=== PATIENT | female | born 1945 | race Caucasian/White ===

== ENCOUNTER 2016-11-10 13:43 | Emergency (ER) | payer OTHER ==
--- NOTE | 2016-11-10 14:48 | RAD ---
HISTORY: Head injury COMPARISONS: None TECHNIQUE: Multiple contiguous axial CT scans were obtained of the head without intravenous contrast. FINDINGS: HEMORRHAGE/INFARCT: There is no hemorrhage or acute infarct. MASSES/SHIFT: There is no mass or shift. EXTRA-AXIAL SPACES: There are no extra-axial fluid collections. SULCI AND VENTRICLES: The sulci and ventricles are normal in size and position for the patient's stated age. CEREBRUM: There are no focal parenchymal abnormalities. BRAINSTEM: There are no focal parenchymal abnormalities. CEREBELLUM: There are no focal parenchymal abnormalities. VESSELS: There is calcification of the cavernous segments of the internal carotid arteries bilaterally and of the distal vertebral arteries bilaterally. PARANASAL SINUSES: The paranasal sinuses are clear. ORBITS: The orbits are unremarkable. BONES AND SOFT TISSUE: No bone or soft tissue abnormalities are noted. OTHER: None IMPRESSION: NO ACUTE INTRACRANIAL PATHOLOGY.
--- NOTE | 2016-11-10 16:13 | ED ---
Head Injury - HPI Summary HPI Summary: 71F presents with fall to right side of face. She states she tripped and landed on right side of face. no LOC. no nausea or vomiting. is not on blood thinners. denies any other pain. believes tetanus up to date. has small lac on right face. swelling to right side of face. fall was a mechanical fall. no chest pain or SOB. no other injury besides face. - History Of Current Complaint Chief Complaint: EDLacSutureRecheck Stated Complaint: FALL Time Seen by Provider: 11/10/16 14:15 Pain Intensity: 5 - Allergies/Home Medications Allergies/Adverse Reactions: Allergies Allergy/AdvReac Type Severity Reaction Status Date / Time Apple Allergy Unknown Verified 11/21/13 15:44 Reaction Details Cortisone Allergy Rash And Verified 11/25/13 09:04 Itching DIZZINESS PMH/Surg Hx/FS Hx/Imm Hx Endocrine/Hematology History: Denies: Hx Anticoagulant Therapy Cardiovascular History: Reports: Hx Hypertension Musculoskeletal History: Denies: Hx Osteoporosis Infectious Disease History: No Infectious Disease History: Denies: Traveled Outside the [place] in Last 30 Days - Family History Known Family History: Positive: Hypertension - Social History Alcohol Use: Rare Substance Use Type: Reports: None Smoking Status (MU): Never Smoked Tobacco Review of Systems Negative: Fever Negative: Chest Pain Negative: Shortness Of Breath Positive: Other - lac face and facial swelling Positive: Headache All Other Systems Reviewed And Are Negative: Yes Physical Exam Triage Information Reviewed: Yes Vital Signs On Initial Exam: Initial Vitals Temp Pulse Resp BP Pulse Ox 98 F 78 20 138/66 99 11/10/16 13:45 11/10/16 13:45 11/10/16 13:45 11/10/16 13:45 11/10/16 13:45 Vital Signs Reviewed: Yes Appearance: Positive: Well-Appearing Skin: Positive: Warm, Dry, Other - 1cm lac to right side of face Head/Face: Positive: Other - swelling around right eye, no step off, perez sign Eyes: Positive: Normal, EOMI, SELMA, Conjunctiva Clear ENT: Positive: Normal ENT inspection, Pharynx normal, TMs normal Respiratory/Lung Sounds: Positive: Clear to Auscultation, Breath Sounds Present Cardiovascular: Positive: Normal, RRR Musculoskeletal: Positive: Normal Neurological: Positive: Sensory/Motor Intact, Alert, Oriented to Person Place, Time, CN Intact II-III - [place] Coma Scale Best Eye Response: 4 - Spontaneous Best Motor Response: 6 - Obeys Commands Best Verbal Response: 5 - Oriented Coma Scale Total: 15 Procedures - Laceration/Wound Repair 1 Location: face Description: Irregular Length, Depth and Shape: 1cm superficial Irrigated w/ Saline (ccs): 100 Closure: Skin Adhesive, SteriStrips Diagnostics - Vital Signs Vital Signs Temp Pulse Resp BP Pulse Ox 11/10/16 13:45 98 F 78 20 138/66 99 - Laboratory Lab Statement: Any lab studies that have been ordered have been reviewed, and results considered in the medical decision making process. - CT brain, maxillaryfacial CT Interpretation: No Acute Changes CT Interpretation Completed By: Radiologist Head Injury Course/Dx Course Of Treatment: 71F presents with fall to right side of face. She states she tripped and landed on right side of face. no LOC. no nausea or vomiting. is not on blood thinners. denies any other pain. believes tetanus up to date. has small lac on right face. swelling to right side of face. on exam contusion to right side of face with 1cm superficial lac present that cleaned and glue. EOMI intact. normal neuro exam. - Diagnoses Differential Diagnosis/HQI/PQRI: Contusion, Intracranial Bleed, Laceration, Orbital Fracture Provider Diagnoses: Laceration, Head injury, Facial contusion Discharge - Discharge Plan Condition: Good Disposition: HOME Patient Education Materials: Skin Adhesive Care (ED), Facial Contusion (ED) Referrals: Kulwinder Mcneil MD [Primary Care Provider] - Additional Instructions: Place ice on area Take Tylenol for pain as needed every 6 hours Keep laceration dry for 24 hours Glue will fall off on own Avoid scrubbing area Follow up with primary within 5 days Return to ED if develop any signs of infection or any new or worsening symptoms
--- NOTE | 2016-11-10 16:13 | RAD ---
INDICATION: Right-sided facial injury. COMPARISON: There are no prior studies available for comparison. TECHNIQUE: Contiguous axial sections of the axial images of the facial bones were obtained and reconstructed in the coronal and sagittal planes. FINDINGS: The vasquez of the orbits and maxillary sinuses appear intact. The zygomatic arches appear intact. There is no evidence for a fracture of the mandible. The nasal bones appear intact. There is mild deviation of the nasal septum toward the right side. The pterygoid plates appear intact. The paranasal sinuses appear clear. IMPRESSION: NO EVIDENCE OF FRACTURE.
[2016-11-10 16:30] VITALS: BP 133/68
== END 2016-11-10 16:29 | disposition home or self-care (01) ==
LOC: ED 13:43
DX: S01.81XA Laceration without foreign body of other part of head, initial encounter (principal); S09.90XA Unspecified injury of head, initial encounter; S00.83XA Contusion of other part of head, initial encounter; W18.09XA Striking against other object with subsequent fall, initial encounter; Y92.9 Unspecified place or not applicable; I10 Essential (primary) hypertension
CPT/HCPCS: 12001; 70450; 70486; 99282

== ENCOUNTER 2017-09-14 13:58 | Emergency (ER) | payer OTHER ==
[2017-09-14 14:36] VITALS: BP 156/76
--- NOTE | 2017-09-14 15:41 | UC ---
Lower Extremity/Ankle HPI - HPI Summary HPI Summary: The pt is a 72 y/o female presenting to c/o bilateral LE pain worse in the RLE. The pain started 3 weeks ago worsened 2 days ago. The pain is rated 4/ 10 in severity. She has been travelling by air over the last few days and has also been taking a class that involves plenty of sitting. She denies SOB and CP. This is scribe Erna Duncan documenting for attending Dr. Aubrey Keita, Dr. Burgos , personally performed the services described in this documentation as scribed in my presence and it is both accurate and complete. - History of Current Complaint Chief Complaint: UCLowerExtremity Stated Complaint: LEG PAIN Time Seen by Provider: 09/14/17 15:14 Hx Obtained From: Patient Onset/Duration: Sudden Onset, Lasting Weeks - 3 weeks, Still Present, Worse Since - 2 days ago Severity Initially: Mild Severity Currently: Mild Pain Intensity: 4 Pain Scale Used: 0-10 Numeric - Allergies/Home Medications Allergies/Adverse Reactions: Allergies Allergy/AdvReac Type Severity Reaction Status Date / Time apple Allergy Unknown Verified 09/14/17 14:37 Reaction Details Home Medications: Home Medications Nortriptyline CAP* [Pamelor CAP*] 50 mg PO BEDTIME 09/14/17 [History Confirmed 09/14/17] PMH/Surg Hx/FS Hx/Imm Hx Previously Healthy: Yes - No known hx ofosteopororsis, HTN or cardiac disease Other History Of: Negative For: Anticoagulant Therapy - Surgical History Surgical History: Yes Surgery Procedure, Year, and Place: hysterectomy, cholecystectomy, - Family History Known Family History: Positive: Hypertension - Social History Occupation: Employed Full-time Lives: With Family Alcohol Use: Rare Substance Use Type: None Smoking Status (MU): Never Smoked Tobacco Review of Systems Constitutional: Negative - Fever Respiratory: Negative - SOB, CP Musculoskeletal: Other: - Positive: bilateral LE pain worse in the RLE All Other Systems Reviewed And Are Negative: Yes Physical Exam - Summary Physical Exam Summary: General: well-appearing, no pain distress Skin: warm, color reflects adequate perfusion, dry Head: normal Eyes: EOMI, SELMA ENT: normal Neck: supple, nontender Respiratory: CTA, breath sounds present Cardiovascular: RRR Abdomen: soft, nontender Bowel: present Musculoskeletal: Bilateral edema , R calf is tender to palpation, strength/ROM intact Neurological: sensory/motor intact, A&O x3 Psychological: affect/mood appropriate Triage Information Reviewed: Yes Vital Signs: Initial Vital Signs Temp 97.2 F 09/14/17 14:28 Pulse 49 09/14/17 14:28 Resp 16 09/14/17 14:28 BP 156/76 09/14/17 14:28 Pulse Ox 99 09/14/17 14:28 Vital Signs Reviewed: Yes Lower Extremity Course/Dx - Course Course Of Treatment: NO US AVAILABLE HER IN CLINIC. I RECOMMENDED GOING TO THE EMERGENCY DEPARTMENT FOR A VENOUS DOPPLER TO EVAL FOR DVT. I RECOMMENDED LAB WORK TO CHECK KIDNEY FUNCTION. THE PATIENT PREFERED TO HAVE LAB WORK DONE IN THE ED. - Differential Dx/Diagnosis Provider Diagnoses: B/L PEDAL EDEMA. RIGHT CALF PAIN Discharge - Sign-Out/Discharge Documenting (check all that apply): Patient Departure - Discharge Plan Condition: Stable Disposition: HOME-RECOMMEND TO ED Patient Education Materials: Leg Edema (ED), Leg Pain (ED) Referrals: Kulwinder Mcneil MD [Primary Care Provider] - Additional Instructions: GO DIRECTLY TO THE EMERGENCY DEPARTMENT FOR ULTRASOUND OF YOUR LEG TO DETERMINE IF YOU HAVE A DEEP VENOUS THROMBOSIS. - Billing Disposition and Condition Condition: STABLE Disposition: Home-Recommend to ED
== END 2017-09-14 15:42 | disposition home health service (06) ==
LOC: UCEAST 13:58
DX: R60.9 Edema, unspecified (principal); M79.661 Pain in right lower leg
CPT/HCPCS: 99212; G0463

== ENCOUNTER 2017-09-14 17:59 | Emergency (ER) | payer OTHER ==
--- NOTE | 2017-09-14 19:06 | ED ---
Lower Extremity - HPI Summary HPI Summary: 72 y/o female presenting to ER with complaints of bilateral LE pain worse in the RLE which began 3 days ago. The edema started 3 weeks ago worsened 2 days ago due to the new onset of pain in right calf. The pain is rated 4/10 in severity. She has been traveling by air over the last few days and has also been taking a class that involves plenty of sitting. She denies SOB and CP. No known cardiac history. No hx of blood clots. Sent by to rule out DVT and labs. No recent trauma or injury. Denies erythema, or warmth. Denies cigarette and hormone use - History of Current Complaint Chief Complaint: EDExtremityLower Stated Complaint: RT LEG PAIN Time Seen by Provider: 09/14/17 18:28 Hx Obtained From: Patient Onset of Pain: Days Onset/Duration: Weeks Severity Initially: Mild Severity Currently: Mild Pain Intensity: 3 Pain Scale Used: 0-10 Numeric Timing: Constant Location: Is Discrete @ - right posterior lower leg/calf Character Of Pain: Aching Associated Signs And Symptoms: Positive: Swelling Aggravating Factor(s): Standing, Ambulation Alleviating Factor(s): Rest Able to Bear Weight: Yes - Allergies/Home Medications Allergies/Adverse Reactions: Allergies Allergy/AdvReac Type Severity Reaction Status Date / Time apple Allergy Unknown Verified 09/14/17 14:37 Reaction Details PMH/Surg Hx/FS Hx/Imm Hx Endocrine/Hematology History: Denies: Hx Anticoagulant Therapy Cardiovascular History: Denies: Hx Deep Vein Thrombosis, Hx Hypertension Musculoskeletal History: Denies: Hx Osteoporosis - Surgical History Surgery Procedure, Year, and Place: hysterectomy, cholecystectomy, - Immunization History Immunizations Up to Date: Yes Infectious Disease History: No Infectious Disease History: Denies: Traveled Outside the [place] in Last 30 Days - Family History Known Family History: Positive: Hypertension - Social History Alcohol Use: Rare Substance Use Type: Reports: None Smoking Status (MU): Never Smoked Tobacco Review of Systems Constitutional: Negative Cardiovascular: Negative Respiratory: Negative Gastrointestinal: Negative Positive: Arthralgia, Myalgia, Edema Skin: Negative Neurological: Negative All Other Systems Reviewed And Are Negative: Yes Physical Exam Triage Information Reviewed: Yes Vital Signs On Initial Exam: Initial Vitals Temp Pulse Resp BP Pulse Ox 97.5 F 47 16 145/72 98 09/14/17 18:03 09/14/17 18:03 09/14/17 18:03 09/14/17 18:03 09/14/17 18:03 Vital Signs Reviewed: Yes Appearance: Positive: Well-Appearing, No Pain Distress, Well-Nourished Skin: Positive: Warm, Skin Color Reflects Adequate Perfusion, Dry. Negative: Cold, Numb, Cyanosis @, Pale, Erythema @ Head/Face: Positive: Normal Head/Face Inspection Eyes: Positive: Conjunctiva Clear ENT: Positive: Hearing grossly normal Neck: Positive: Supple, Nontender Respiratory/Lung Sounds: Positive: Clear to Auscultation, Breath Sounds Present. Negative: Rales, Rhonchi, Wheezes Cardiovascular: Positive: Normal, RRR, Pulses are Symmetrical in both Upper and Lower Extremities, Leg Edema Left - 2+, pedal, Leg Edema Right - 2+ pedal. Negative: Murmur, Rub Bowel Sounds: Positive: Present Musculoskeletal: Positive: Normal, Strength/ROM Intact, Neela Sign Right, Edema Left, Edema Right - pedal as described above. Negative: Limited @, Interruption @, Abnormal @, Pain @, Neela Sign Left Neurological: Positive: Normal, Sensory/Motor Intact, Alert, Oriented to Person Place, Time, NV Bundle Intact Distally, Normal Gait Diagnostics - Vital Signs Vital Signs Temp Pulse Resp BP Pulse Ox 09/14/17 18:03 97.5 F 47 16 145/72 98 - Laboratory Result Diagrams: 09/14/17 18:59 09/14/17 18:59 Lab Statement: Any lab studies that have been ordered have been reviewed, and results considered in the medical decision making process. - Ultrasound No standard instances Ultrasound Interpretation: No Acute Changes - normal exam of venous dopple bilateral lower extremities Ultrasound Interpretation Completed By: Radiologist Re-Evaluation - Re-Evaluation First Eval Re-Evaluation Time: 20:45 Change: Unchanged - still feeling the same Lower Extremity Course/Dx - Course Course Of Treatment: basic labs and ultrasound of lower extremities obtained. Patient comfortable throughout stay. Normal vitals no chest pain or shortness of breath. Ultrasound of bilateral extremities negative. Appears to be bilateral lower leg edema due to prolonged sitting over an extended period of time. Labs unremarkable including kidney function and BNP. Appears to be experiencing some pain possibly due from edema. Has follow-up with primary care tomorrow morning. For further evaluation and treatment of symptoms. Recommended elevation, compression and ibuprofen. Rest. Aware worsening signs symptoms watch out for. No other concerns requiring further evaluation or workup at this time. Patient agrees and understands. All questions were answered. - Diagnoses Differential Diagnosis/HQI/PQRI: Positive: DVT, Strain, Other - Bilateral pedal edema Provider Diagnoses: Edema, lower extremity, Lower leg pain Discharge - Sign-Out/Discharge Documenting (check all that apply): Patient Departure - Discharge Plan Condition: Good Disposition: HOME Patient Education Materials: Leg Edema (ED), Leg Pain (ED) Referrals: Kulwinder Mcneil MD [Primary Care Provider] - Additional Instructions: Please follow up with primary care provider as scheduled tomorrow morning. Recommend elevation and a trial of compression stockings. Avoid excessive amounts of salt intake. Recommend trying ibuprofen for pain and inflammation as discussed. Any new or worsening symptoms please return to ER and seek medical attention immediately as we discussed. - Billing Disposition and Condition Condition: GOOD Disposition: Home
[2017-09-14 19:08] LABS: ABS Basophils 0.1 10^3/ul (0-0.2); ABS Eosinophils 0.1 10^3/ul (0-0.6); ABS Monocytes 0.3 10^3/ul (0-0.8); ABS Nucleated RBC 0 10^3/ul; Eosinophil % 1.7 % (0-6); Hematocrit 40 % (35-47); Hemoglobin 13.8 g/dl (12.0-16.0); Lymphocyte % 44.3 % (25-47); Mean Corpuscular HGB Conc 34 g/dl (31-36); Mean Corpuscular Hemoglobin 32 pg (27-31); Mean Corpuscular Volume 93 fL (80-97); Mean Platelet Volume 8.1 um3 (7.4-10.4); Nucleated Red Blood Cells % 0.1; Platelet Count 171 10^3/ul (150-450); Red Blood Count 4.35 10^6/ul (4.00-5.40); Red Cell Distribution Width 14 % (10.5-15); White Blood Count 4.4 10^3/ul (3.5-10.8)
[2017-09-14 19:24] LABS: EGFR Non-African American 51.8 (>60)
[2017-09-14 21:12] VITALS: BP 164/61
--- NOTE | 2017-09-15 07:24 | RAD ---
INDICATION: Pain and swelling. COMPARISON: None TECHNIQUE: Duplex interrogation of the both lower extremities was performed. FINDINGS: Deep veins: The common femoral, great saphenous, profunda femoris, proximal, mid, and distal deep femoral, popliteal, posterior tibial, and peroneal veins are patent bilaterally There is normal compressibility, augmentation, and phasic flow. Superficial veins: There are no findings of superficial thrombophlebitis. Popliteal fossa:There is no evidence of a popliteal cyst in either leg. Soft tissues:There are no soft tissue abnormalities bilaterally. IMPRESSION: NORMAL BILATERAL EXAMINATION. NO EVIDENCE OF DEEP VENOUS THROMBOSIS
== END 2017-09-14 21:10 | disposition home or self-care (01) ==
LOC: ED 17:59
DX: R60.9 Edema, unspecified (principal); M79.662 Pain in left lower leg; M79.661 Pain in right lower leg
CPT/HCPCS: 36415; 80053; 83880; 85025; 93970; 99282